=== PATIENT | male | born 1990 | race Two or more races ===

== ENCOUNTER 2019-08-19 12:38 | Emergency (ER) | payer OTHER ==
[~2019-08-19] VITALS: Ht 165.1 cm; Wt 63.6 kg
[2019-08-19] MEDS ORDERED: LOPE2TAB26 PO (12:51)
[2019-08-19] MEDS ORDERED: IBUPROFEN 400 MG TABLET PO ONE (13:15)
[2019-08-19 14:32] VITALS: BP 109/66
== END 2019-08-19 14:42 | disposition home or self-care (01) ==
LOC: EMS 12:43
DX: S63.612A Unspecified sprain of right middle finger, initial encounter (principal); W21.05XA Struck by basketball, initial encounter; Y93.67 Activity, basketball; Y92.89 Other specified places as the place of occurrence of the external cause; Y99.8 Other external cause status